=== PATIENT | male | born 1980 | race American Indian/Alaskan Native ===

== ENCOUNTER 2017-10-10 09:48 | Emergency (ER) | payer OTHER ==
[2017-10-10 10:49] LABS: Basophils # (Auto) 0.1 K/mm3 (0.0-0.1); Eosinophils # (Auto) 0.4 K/mm3 (0.0-0.4); Eosinophils % (Auto) 3.9 % (0.0-4.3); Hematocrit 41.9 % (35.5-45.6); Hemoglobin 13.5 gm/dl (11.8-15.2); Lymphocytes # (Auto) 3.3 K/mm3 (1.2-5.4); Lymphocytes % (Auto) 29.7 % (13.4-35.0); Mean Corpuscular HGB Conc 32 % (32-34); Mean Corpuscular Hemoglobin 30 pg (28-32); Mean Corpuscular Volume 94 fl (84-94); Monocytes # (Auto) 0.6 K/mm3 (0.0-0.8); Monocytes % (Auto) 5.8 % (0.0-7.3); Platelet Count 272 K/mm3 (140-440); Red Blood Count 4.47 M/mm3 (3.65-5.03); Red Cell Distribution Width 14.4 % (13.2-15.2)
[2017-10-10 10:54] LABS: Calcium 9.3 mg/dL (8.4-10.2)
--- NOTE | 2017-10-10 11:42 | XRay Report ---
CHEST XRAY, 2 VIEWS: History: Shortness of breath. Findings: There is mild cardiomegaly. Pulmonary vessels are within normal limits. The lungs are clear and fully expanded. No infiltrate, pleural effusion or pneumothorax. Normal thoracic cage. IMPRESSION: Cardiomegaly.
--- NOTE | 2017-10-10 11:52 | Emergency Department Report ---
ED Shortness of Breath HPI - General Chief Complaint: Dyspnea/Respdistress Stated Complaint: [place] Time Seen by Provider: 10/10/17 11:51 Source: patient Mode of arrival: Ambulatory Limitations: No Limitations - History of Present Illness Initial Comments: This is a 37-year-old male who was previously unknown to this provider. He has a past medical history of hypertension. He is noncompliant with his medications. He presents to the ER with a complaint of shortness of breath. It has been present for 2 months. It is constant. He came in today because his partner/significant other health care coach wanted me to get checked out." He has no chest pain, there is no abdominal pain, he endorses lower extremity swell Ing. he denies cocaine use. MD Complaint: shortness of breath -: Gradual, month(s) Consistency: intermittent Improves With: oxygen, rest Worsens With: lying flat, exertion Treatments Prior to Arrival: none - Related Data Home Medications Medication Instructions Recorded Confirmed Last Taken No Known Home Medications [No 10/10/17 10/10/17 Unknown Reported Home Medications] Allergies Allergy/AdvReac Type Severity Reaction Status Date / Time No Known Allergies Allergy Unverified 10/10/17 09:58 ED Review of Systems ROS: Stated complaint: [place] Other details as noted in HPI Constitutional: denies: fever Eyes: denies: vision change ENT: denies: epistaxis Respiratory: shortness of breath Cardiovascular: dyspnea on exertion, orthopnea. denies: chest pain, syncope Gastrointestinal: denies: abdominal pain Genitourinary: denies: dysuria Musculoskeletal: joint swelling, arthralgia, myalgia Neurological: weakness. denies: as per HPI Psychiatric: as per HPI ED Past Medical Hx - Past Medical History Previous Medical History?: Yes Hx Hypertension: Yes - Surgical History Past Surgical History?: No - Social History Smoking Status: Never Smoker Substance Use Type: None - Medications Home Medications: Home Medications Medication Instructions Recorded Confirmed Last Taken Type No Known Home Medications [No 10/10/17 10/10/17 Unknown History Reported Home Medications] ED Physical Exam - General Limitations: No Limitations General appearance: alert, in no apparent distress, obese - Head Head exam: Present: atraumatic, normocephalic - Eye Eye exam: Present: normal appearance, EOMI. Absent: conjunctival injection - ENT ENT exam: Present: mucous membranes moist - Neck Neck exam: Present: normal inspection - Respiratory Respiratory exam: Present: decreased breath sounds. Absent: respiratory distress - Cardiovascular Cardiovascular Exam: Present: regular rate, normal rhythm, normal heart sounds. Absent: bradycardia, tachycardia, irregular rhythm, systolic murmur, diastolic murmur, rubs, gallop - GI/Abdominal GI/Abdominal exam: Present: soft, normal bowel sounds. Absent: distended, tenderness, guarding, rebound, rigid, pulsatile mass - Rectal Rectal exam: Present: deferred - Extremities Exam Extremities exam: Present: normal inspection, full ROM, pedal edema, other ( there is no palpable cord. There is a negative Homans sign.). Absent: tenderness, joint swelling, calf tenderness - Back Exam Back exam: Present: normal inspection, full ROM. Absent: tenderness, CVA tenderness (R), paraspinal tenderness, vertebral tenderness - Neurological Exam Neurological exam: Present: alert, oriented X3, CN II-XII intact, normal gait, other (Extraocular movements intact. Tongue midline. No facial droop. Facial sensation intact to light touch in the V1, V2, V3 distribution bilaterally. 5 and 5 strength in 4 extremities.. Sensation is intact to light touch in 4 extremities.). Absent: motor sensory deficit - Psychiatric Psychiatric exam: Present: normal affect, normal mood - Skin Skin exam: Present: warm, dry, intact, normal color. Absent: rash ED Course Vital Signs 10/10/17 10/10/17 09:58 12:47 Temperature 98.2 F Pulse Rate 94 H 78 Respiratory 22 Rate Blood Pressure 220/156 183/100 O2 Sat by Pulse 97 Oximetry - Reevaluation(s) Reevaluation #1: 10/10/17 13:18 Blood pressure is improved. Diuretics administered. Patient amenable to hospital admission. The Hospital physician, Dr. Witt, accepted the patient to the medical service. Admitting diagnosis is hypertensive cardiac myopathy, presumed right-sided heart failure, fluid overload. Reevaluation #2: 10/10/17 14:08 Change in plans. Patient is a [facility] patient. Case was discussed with [facility] physician, Dr. Baugh, who therefore in turn discussed the case with [facility] physician, Dr. Byrne, who accepts the patient to their hospital for definitive care and management. Dr. Witt was informed. ED Medical Decision Making - Lab Data Result diagrams: 10/10/17 10:09 10/10/17 10:09 Vital Signs 10/10/17 09:58 Temperature 98.2 F Pulse Rate 94 H Respiratory 22 Rate Blood Pressure 220/156 O2 Sat by Pulse 97 Oximetry Labs 10/10/17 10/10/17 10:09 10:09 WBC 11.2 H RBC 4.47 Hgb 13.5 Hct 41.9 MCV 94 MCH 30 MCHC 32 RDW 14.4 Plt Count 272 Lymph % (Auto) 29.7 Letcher % (Auto) 5.8 Eos % (Auto) 3.9 Baso % (Auto) 1.0 Lymph # 3.3 Letcher # 0.6 Eos # 0.4 Baso # 0.1 Seg Neutrophils % 59.6 Seg Neutrophils # 6.7 Sodium 140 Potassium 3.7 Chloride 99.9 Carbon Dioxide 31 H Anion Gap 13 BUN 15 Creatinine 1.4 Estimated GFR 56 BUN/Creatinine Ratio 11 Glucose 97 Calcium 9.3 Troponin T 0.023 - EKG Data -: EKG Interpreted by Ks EKG shows normal: sinus rhythm Rate: normal - EKG Data When compared to previous EKG there are: previous EKG unavailable 10/10/17 12:10 Normal sinus, 87 bpm, normal axis, QTC prolonged, poor R wave progression, atrial enlargement, abnormal EKG, not consistent with a stemi - Radiology Data Radiology results: report reviewed, [place] [address] XRay Report Signed Patient: YESSI LIPSCOMB MR#: [id number] : 1980 Acct:[id number] Age/Sex: 37 / M ADM Date: 10/10/17 Loc: ED Attending Dr: Ordering Physician: CONSTANZA GREEN MD Date of Service: 10/10/17 Procedure(s): XR chest routine 2V Accession Number(s): [id number] cc: ED MD NORMA Fluoro Time In Minutes: CHEST XRAY, 2 VIEWS: History: Shortness of breath. Findings: There is mild cardiomegaly. Pulmonary vessels are within normal limits. The lungs are clear and fully expanded. No infiltrate, pleural effusion or pneumothorax. Normal thoracic cage. IMPRESSION: Cardiomegaly. Transcribed By: TTR Dictated By: EAGLE RESENDIZ JR, MD Electronically Authenticated By: EAGLE RESENDIZ JR, MD Signed Date/Time: 10/10/17 1133 DD/ 113 TD/TT: 10/10/17 1133 - Medical Decision Making Differential diagnosis, including but not limited to: Medication noncompliance, right-sided heart failure, obstructive sleep apnea, hypertensive cardiomyopathy , lower extremity edema, DVT Assessment and plan: 37-year-old male who is obese, lower extremity swelling, with no pulmonary embolus or DVT risk factors are his low risk by well's criteria, who is low risk by perc score, with complaint of shortness of breath, lower extremity swelling and hypertension. His female supervisor testing with him indicates that he snores quite loudly, that he stops breathing while snoring. He most likely has undiagnosed obstructive sleep apnea. Quite obese as well, may also have obesity hypoventilation syndrome. Intermittently he desaturates to 90% on room air, DVT study of the lower extremities was negative. I recommended admission to the hospital for blood pressure control, diuresis, echocardiogram, and cardiac risk stratification. The patient is "on the fence about it." He is alert and oriented 3, exhibits decision-making capacity and is free from distracting injury. Risks of leaving prior to medical optimization and further cardiac evaluation with discussed with patient and friends/family, and he was informed them of the risk of , disability, paralysis, loss of quality of life. Patient verbalizes understanding in his own words, and exhibits decision- making capacity. He is amenable to IV placement, diuresis, and IV hydralazine. Critical care attestation.: If time is entered above; I have spent that time in minutes in the direct care of this critically ill patient, excluding procedure time. ED Disposition Clinical Impression: Hypertensive cardiomyopathy, Right-sided heart failure Disposition: OP ADMIT IP TO THIS HOSP Is pt being admited?: Yes Does the pt Need Aspirin: Yes Condition: Good Referrals: PRIMARY CARE, [Primary Care Provider] - 3-5 Days
[2017-10-10] MEDS ORDERED: LASIX IV ONE (12:08)
[2017-10-10] MEDS ORDERED: APRESOLINE IV ONE ×2 (12:08→15:43)
[2017-10-10 12:18] LABS: INR 1.04 (0.87-1.13)
[2017-10-10] MEDS ORDERED: BABY ASPIRIN PO ONE (13:19)
[2017-10-10] MEDS ORDERED: APRESOLINE ONE (15:07)
[2017-10-10 15:25] VITALS: BP 155/100
--- NOTE | 2017-10-11 15:30 | Vascular Lab Report ---
LOWER EXTREMITY VENOUS DUPLEX: REASON FOR EXAM: Bilateral lower extremity swelling and shortness of breath. COMMENTS ON THE RIGHT: All veins visualized are freely compressible without evidence of internal echogenicity. Flow is spontaneous and phasic throughout. COMMENTS ON THE LEFT: All veins visualized are freely compressible without evidence of internal echogenicity. Flow is spontaneous and phasic throughout. IMPRESSION: No evidence of acute or chronic deep venous thrombosis in either lower extremity.
== END 2017-10-10 16:53 | disposition left against medical advice (07) ==
LOC: ED 09:48
DX: I11.0 Hypertensive heart disease with heart failure (principal); I50.9 Heart failure, unspecified
CPT/HCPCS: 36415; 71046; 80048; 82550; 83735; 83880; 84484; 85025; 85610; 93005; 93010; 93970; 96374; 96375; 96376; 99284; J0360; J1940